=== PATIENT | male | born 1990 | race Caucasian/White ===

== ENCOUNTER 2016-11-26 16:27 | Emergency (ER) | payer SELFPAY ==
[~2016-11-26] VITALS: Ht 170.2 cm; Wt 75.0 kg
[2016-11-26 16:27] VITALS: BP 129/69; PULSE 90; RESP 18; RESP 20; TEMP 98.3; O2SAT 99
[2016-11-26] MEDS ORDERED: ONDANSETRON HCL 4 MG/2 ML VIAL IVP ONE (16:45)
[2016-11-26] MEDS ORDERED: LORazepam 2 MG/ML VIAL IV PUSH ONE (16:45)
[2016-11-26] MEDS ORDERED: SODIUM CHLOR 0.9% 1000 ML INJ 1,000 ML IV SCH ×2 (16:45)
--- NOTE | 2016-11-26 16:48 | PD ---
HPI Chief Complaint: Medical Clearance Time Seen by Provider: 16:38 Travel History International Travel<30 days: No Contact w/Intl Traveler<30days: No Traveled to known affect area: No History of Present Illness HPI 26-year-old male presents under police custody for medical clearance to go to [facility]. The patient reports that last night he became very intoxicated. He woke up today with a hangover and he has been vomiting. He was arrested by the police for assault and as he was running from the police began having cramping in his legs and feet. He continues to have a cramping sensation in his feet and his legs. Symptoms are moderate, aggravated by movement. No other complaints. [facility], [facility] Social History Alcohol Use: Yes Tobacco Use: Yes Allergies-Medications (Allergen,Severity, Reaction): Coded Allergies: Penicillin (Verified Allergy, Unknown, PT WAS TOLD BY HIS MOTHER THAT HIS THROAT SWELLS, 11/26/16) Reported Meds & Prescriptions Reported Meds & Active Scripts Active No Active Prescriptions or Reported Medications Review of Systems Except as stated in HPI: all other systems reviewed are Neg Physical Exam Narrative GENERAL: Well-developed well-nourished male in no acute distress SKIN: Warm and dry. HEAD: Atraumatic. Normocephalic. EYES: Pupils equal and round. No scleral icterus. No injection or drainage. ENT: No nasal bleeding or discharge. Mucous membranes pink and moist. NECK: Trachea midline. No JVD. CARDIOVASCULAR: Regular rate and rhythm. No murmur appreciated. RESPIRATORY: No accessory muscle use. Clear to auscultation. Breath sounds equal bilaterally. GASTROINTESTINAL: Abdomen soft, non-tender, nondistended. Hepatic and splenic margins not palpable. MUSCULOSKELETAL: No obvious deformities. The patient has cramping of the calf muscles bilaterally. NEUROLOGICAL: Awake and alert. No obvious cranial nerve deficits. Motor grossly within normal limits. Normal speech. PSYCHIATRIC: Appropriate mood and affect; insight and judgment normal. Data Data Last Documented VS Vital Signs Date Time Temp Pulse Resp B/P Pulse Ox O2 Delivery O2 Flow Rate FiO2 11/26/16 16:27 98.3 90 20 129/69 99 11/26/16 16:27 Room Air Orders Basic Metabolic Panel (Bmp) (11/26/16 16:45) Creatine Kinase (Cpk) (11/26/16 16:45) Magnesium (Mg) (11/26/16 16:45) Iv Access Insert/Monitor (11/26/16 16:45) Ondansetron Inj (Zofran Inj) (11/26/16 16:45) Sodium Chlor 0.9% 1000 Ml Inj (Ns 1000 M (11/26/16 16:45) Sodium Chlor 0.9% 1000 Ml Inj (Ns 1000 M (11/26/16 16:45) Lorazepam Inj (Ativan Inj) (11/26/16 16:45) Labs Laboratory Tests Test 11/26/16 17:10 Sodium Level 142 MEQ/L Potassium Level 4.3 MEQ/L Chloride Level 107 MEQ/L Carbon Dioxide Level 26.4 MEQ/L Anion Gap 9 MEQ/L Blood Urea Nitrogen 10 MG/DL Creatinine 1.02 MG/DL Estimat Glomerular Filtration 88 ML/MIN Rate Random Glucose 93 MG/DL Calcium Level 9.1 MG/DL Magnesium Level 2.0 MG/DL Total Creatine Kinase 280 U/L MDM Medical Decision Making Medical Screen Exam Complete: Yes Emergency Medical Condition: Yes Medical Record Reviewed: Yes Differential Diagnosis Dehydration, electrolyte abnormality, rhabdomyolysis Narrative Course This is a 26-year-old male who became intoxicated yesterday evening and woke up today "hung over" with nausea and vomiting, feeling dehydrated. He was arrested for assault and as he began running away from police started having cramping in the lower legs. Plan is to check electrolytes, CK. He'll be given IV fluids, Ativan and Zofran. Labwork unremarkable. Patient feels improved. He is stable for discharge. Diagnosis Primary Impression: Muscle cramps Additional Instructions: Stay well-hydrated and well-nourished. Drink alcohol only in moderation. Return for any emergent medical conditions. Med/Other Pt SpecificInfo: No Change to Meds Scripts No Active Prescriptions or Reported Meds Disposition: [address] LAW ENFORCEMNT Condition: Stable Luther Romero Nov 26, 2016 16:48
[2016-11-26 17:53] LABS: BICARBONATE 26.4 MEQ/L (21.0-32.0); POTASSIUM 4.3 MEQ/L (3.5-5.1)
== END 2016-11-26 18:57 ==
LOC: NEPB 16:27
DX: R25.2 Cramp and spasm (principal); R11.2 Nausea with vomiting, unspecified; Z72.0 Tobacco use
CPT/HCPCS: 80048; 82550; 83735; 96361; 96374; 96375; 99283; J2060; J2405; J7030